=== PATIENT | male | born 1965 | race Caucasian/White ===

== ENCOUNTER 2016-09-12 06:36 | Day surgery (SDC) | payer SELFPAY ==
[~2016-09-12 06:36] MED LIST: Buffered Lidocaine 0.9% SYRIN* 5 ML/SYR SYRINGE INTRADERM ONE; Famotidine IV* 10 MG/ML 2 ML (20 mg) IV ONE; Morphine INJ* 2 MG/ML 1 ML SYRINGE IV PRN; NS 0.9% 1000 ML* 1,000 ML IV SCH; PROCHLORPERAZINE INJ 5 MG/ML 2 ML VIAL IV PRN; fentaNYL* 50 MCG/ML 2 ML VIAL (100 MCG VIAL) IV PRN; oxyCODONE/Acetamin 5/325 MG* TAB PO PRN
[2016-09-12] MEDS ORDERED: Bupivacaine 0.25% SDV* 30 ML ONE (07:12)
[2016-09-12] MEDS ORDERED: Midazolam* 1 MG/ML 5 ML VIAL (5 MG) ONE (07:29)
[2016-09-12] MEDS ORDERED: KETAMINE HCL* 50 MG/ML 10 ML VIAL ONE (07:29)
[2016-09-12] MEDS ORDERED: fentaNYL* 50 MCG/ML 2 ML VIAL (100 MCG VIAL) ONE (07:29)
[2016-09-12] MEDS ORDERED: Lidocaine 2% PF * 5 ML VIAL ONE (08:00)
[2016-09-12] MEDS ORDERED: Dexamethasone IV* 4 MG/ML 1 ML (4 MG) ONE (08:00)
[2016-09-12] MEDS ORDERED: Ondansetron INJ* 2 MG/ML VIAL ONE (08:00)
[2016-09-12] MEDS ORDERED: Propofol* 10 MG/ML 20 ML BTL IV PUSH ONE (08:00)
[2016-09-12] MEDS ORDERED: Ketorolac INJ* 30 MG/ML 1 ML VIAL ONE (08:05)
[2016-09-12] MEDS ORDERED: PROCHLORPERAZINE INJ 5 MG/ML 2 ML VIAL ONE (10:12)
[2016-09-12 10:24] VITALS: BP 131/89
--- NOTE | 2016-09-12 23:34 | OP ---
DATE OF OPERATION: 09/12/16 - [facility] DATE OF : 61 SURGEON: Ricki Sosa MD CAMPAIGN MARKETING SPECIALIST: WEI Medel. An bindery assistant was needed for the entirety of the case to aid in retraction. ANESTHESIOLOGIST: Dr. Adamson. ANESTHESIA: General. PRE-OP DIAGNOSES: 1. Left carpal tunnel syndrome. 2. Left ulnar nerve compression at the elbow. POST-OP DIAGNOSES: 1. Left carpal tunnel syndrome. 2. Left ulnar nerve compression at the elbow. OPERATIVE PROCEDURE: 1. Left carpal tunnel release. 2. Left ulnar nerve decompression at the elbow with anterior subcutaneous transposition. ESTIMATED BLOOD LOSS: 10 mL. COMPLICATIONS: None. 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 He has been dealing with this for quite some time and it has been progressive. We had talked about nonoperative treatments and risks and benefits. He has elected to proceed with surgery. FINDINGS: The ulnar nerve was very unstable. After decompression, it easily subluxated anteriorly over the medial epicondyle. DESCRIPTION OF PROCEDURE: Perry was seen in the preoperative holding area and the correct side, site, and procedure were identified. We came back to the operating room where general anesthesia was induced. The arm was prepped and draped in the usual fashion. Formal time-out was performed. I begun by making a longitudinal 2 to 3 cm incision in the proximal aspect of the palm in the standard location for an open carpal tunnel release. Dissection was carried down through the subcutaneous tissue and palmar fascia to expose the transverse carpal ligament. I began to release distally and released the transverse carpal ligament just off the radial aspect of the hook of the hamate. When I got to the level of the proximal aspect of the incision, I released the fat and retracted the skin and subcutaneous tissue superficially and ulnarly. Under direct visualization, I then used the tenotomy scissors to release the remainder of the transverse carpal ligament and distal antebrachial fascia to a level several centimeters proximal to the wrist flexion crease. I then checked the decompression proximally and distally. Everything looked very good. I went ahead and irrigated out the wound and the skin was closed with some 4-0 nylon suture. I then turned my attention to the elbow. Incision was marked out, centered over Wren's ligament, extending distally and proximally about 4 cm in either direction in line with the ulnar nerve. Dissection was carried down sharply through the subcutaneous tissue proximally and bluntly with the scissors distally. The medial antebrachial nerve was indeed identified and protected throughout the entirety of the case. Once I had completed the superficial dissection, I went ahead and exposed the ulnar nerve just at proximal aspect of Wren's ligament. I then completed the decompression proximally by releasing the overlying fascia to a level past 8 cm proximal to the medial epicondyle and releasing arcade of [place]. I then turned my attention distally. I went ahead and released Wren's ligament right in the mid portion of the ligament. I then released the superficial fascia of the FCU. I then used the [employer] [place] to spread the two heads of the FCU apart and released the subfascial layer with the tenotomy scissors well distal to the medial epicondyle. There was absolutely no more compression on the nerve proximally or distally. At this point, I went ahead and checked for stability. I flexed the elbow up and down. At about 70 to 80 degrees flexion, the ulnar nerve frankly subluxated every single time over the medial epicondyle. I went ahead and tried to bolster the soft tissue in the medial epicondyle region but it was still unstable. At this point, I decided I should perform a subcutaneous transposition. I extended my incision another couple of centimeters proximally and distally. I went ahead and performed neurolysis and I performed an intraneural dissection gaining length in the motor branch to the ulnar head of the FCU. Once I had adequate mobilization of the nerve, I went ahead and placed it back in the cubital tunnel. I then raised a distally based fascial flap right off the medial epicondyle. I then went ahead and transposed the nerve superficial to my fascial flap. This was then brought up and tacked down to hold the nerve in the anteriorly transposed position. During the transposition, I excised the entirety of the medial intramuscular septum. I also excised the tight facial band overlying the humeral head of the FCU, so there was absolutely no kinking of the nerve. I went ahead and flexed the elbow multiple times to make sure that it was not kinking distally at the FCU. It was very nicely transposed, there was absolutely no kinking and the nerve glided freely. I therefore irrigated out the wound. The skin was reapproximated with 3- 0 Polysorb suture. The skin was then closed with some 4-0 nylon suture. All the operative areas were infiltrated with 0.25% plain Marcaine. The wounds were dressed with Xeroform, 4x4s, and ABD at the elbow and sterile Webril and then a posterior plaster splint was applied. Tourniquet was deflated in the process of placing the splint. The arm had been exsanguinated and the tourniquet inflated to 250 mmHg prior to making skin incision. After the splint was on, he was then awoken up and taken to the recovery room in stable condition. [id number]/CPS #: [id number]
== END 2016-09-12 10:39 | disposition home or self-care (01) ==
LOC: OREAST 06:36
PROVIDERS: ATTEND Orthopaedic Surgery Hand Surgery
DX: G56.02 Carpal tunnel syndrome, left upper limb (principal); G56.22 Lesion of ulnar nerve, left upper limb; K21.9 Gastro-esophageal reflux disease without esophagitis
CPT/HCPCS: J0780; J1100; J1885; J2250; J2405; J2704; J3010